=== PATIENT | female | born 1975 | race Caucasian/White ===

== ENCOUNTER → 2020-08-18 15:18 | Outpatient (CLI) | payer OTHER, SELFPAY | PROVIDERS: Visit Provider Nurse Practitioner Family | DX: R10.30 Lower abdominal pain, unspecified (principal); Z86.19 Personal history of other infectious and parasitic diseases | CPT/HCPCS: 87045; 87177 ==

== ENCOUNTER → 2022-03-30 16:25 | Outpatient (CLI) | payer OTHER, SELFPAY ==
--- NOTE | 2022-03-30 16:32 | XR_ITS ---
PROCEDURE INFORMATION: Exam: XR Cervical Spine Exam date and time: 03/30/2022 4:47 PM Age: 46 years old Clinical indication: Other: Headaches with left arm pain; Patient HX: Headaches that come and go, left arm pain. No known injury. ; Additional info: Headache, unspecified TECHNIQUE: Imaging protocol: Radiologic exam of the cervical spine. Views: 4 or 5 views. COMPARISON: [facility] CT HEAD W/O CONTRAST 05/21/2016 4:52 PM FINDINGS: Bones/joints: No acute fracture or dislocation. Disc spaces are preserved. Small endplate osteophytes anteriorly C5-C6. No bony foraminal stenosis. Mild spinal curvature. Soft tissues: Unremarkable. Lungs: Lung apices are clear. IMPRESSION: No acute findings.
== END ==
PROVIDERS: PCP Family Medicine; Visit Provider Family Medicine
DX: R51.9 Headache, unspecified (principal)
CPT/HCPCS: 72050